=== PATIENT | female | born 1950 | race Caucasian/White ===

== ENCOUNTER 2021-03-07 18:48 | Emergency (ER) | payer MEDICARE, SELFPAY ==
[2021-03-07 18:48] VITALS: BP 131/56; PULSE 88; RESP 16; TEMP 36; O2SAT 96; BMI 26.6
--- NOTE | 2021-03-07 20:27 | EX.ED.DYSGE1 ---
HPI History of Present Illness Chief Complaint: Abscess Informant: patient and family Narrative Narrative: Patient here family infected bump on the back of the last 2 days. No fevers. History of diabetes. Reports there is a bump there in the past, she leans against a recliner. No drainage. Prior similar symptoms: Yes [facility] Medical History (Updated 03/07/21 @ 22:[address] Thang Benavides, DO) Arthritis Asthma Diabetes Hypertension Home Medications amoxicillin-pot clavulanate 1 tab PO Q12H #20 tab 03/07/21 [Rx Last Taken Unknown] Allergy/AdvReac Type Severity Reaction Status Date / Time No Known Allergies Allergy Verified 03/07/21 18:50 Social History Smoking Status: Former smoker ROS ROS ED Constitutional Constitutional ED: Denies chills, fever(s) or sweats Eyes Eyes: Denies change in vision ENT ENT ED: Denies dysphagia or sore throat Cardiovascular Cardiovascular: Denies chest pain, leg edema, palpitations or racing heartbeat Respiratory/Chest Respiratory/Chest: Denies cough, dyspnea or dyspnea on exertion Gastrointestinal Gastrointestinal: Denies abdominal pain, diarrhea, nausea or vomiting Genitourinary Genitourinary ED: Denies dysuria, hematuria or urinary frequency Musculoskeletal Musculoskeletal: Denies back pain, extremity pain or neck pain Integumentary Reports abscess; Denies rash or wounds Neurologic Neurologic: Denies headache(s), paresthesias or weakness EXAM Physical Exam Const Vital Signs: 03/07/21 18:48 03/07/21 22:46 Temperature 96.8 F L Temperature Source Temporal Pulse Rate 88 Respiratory Rate 16 16 Blood Pressure 131/56 H Blood Pressure Mean 81 Pulse Ox 96 Oxygen Delivery Method Room Air Positive well nourished and well developed General Appearance ED: well developed and NAD HEENT Reports moist mucous membranes normocephalic and atraumatic Eyes PERRL, EOMs intact bilaterally and conjunctivae normal General Eye ED: Yes normal appearance of both eyes Neck no lymphadenopathy and supple General: Negative for tenderness Chest Wall Chest: Negative for tenderness Resp normal respiratory effort and normal air movement Effort and Inspection: symmetric chest movement; Negative for respiratory distress Cardio regular rate, regular rhythm and no murmurs Peripheral Pulses: pulses 2+ throughout GI normal to inspection, nondistended, normoactive bowel sounds and non-tender Palpation: Negative for guarding or rebound tenderness present Back/Spine no CVA tenderness and no thoracic nor lumbar tenderness Extremity normal to inspection General Extremety ED: Negative for edema or tenderness General Extremity: Negative for edema Neuro oriented x3 and no sensory deficits noted Sensorium / Orientation: awake and alert Skin Skin Narrative: Flank region left side: 10 cm x 5 cm oval-shaped induration and erythema in the middle. Tender to palpation. No active drainage. MDM MDM MDM Narrative Medical decision making narrative: Patient history exam concerning for an infected sebaceous cyst. Blood glucose 156. Discussed incision and drainage discrete. Performed bedside copious sebaceous and mild exudative drainage. Patient started on Augmentin for 10 days. She is given follow-up with surgery as an outpatient for definitive management. To use Tylenol as needed. Wound care discussed. Discussed following up with her PCP in 2 to 3 days for wound check. Strict return precautions. Procedure note: Verbal consent. Normal sterile conditions. Patient laid lateral recumbent on the left side. Wound was prepped with alcohol pads, 10 cc of lidocaine with 1% epinephrine was used for local analgesia to the superior medial aspect of the cyst, cruciate incision was made extending approximately 3 cm. There was exudative drainage along with sebaceous material. Loculations were broken. 200 cc normal saline used for flushing. Dressing placed by myself. Patient tolerated procedure well. Lab Data Attestation: I reviewed the patient's lab results. Labs: Laboratory Results - last 24 hr 03/07/21 21:03 POC Glucose 156 H Discharge Plan Triage Chief Complaint: Abscess ED Provider: Thang Benavides Dx/Rx/DC Orders Clinical Impression: Sebaceous cyst, Infected sebaceous cyst of skin Instructions: ED Abscess Incision And Drainage, ED Cellulitis Prescriptions: New amoxicillin-pot clavulanate 875-125 mg tablet 1 tab PO Q12H Qty: 20 RF: 0 Primary Care Provider: Ana Barboza Referrals: Ana Barboza DO [Primary Care Provider] - 3-5 Days Ranjith Renner DO [STAFF PHYSICIAN] - 1 Week Activity Restrictions/Additional Instructions: Infected sebaceous cyst status post incision and drainage. Take antibiotic as prescribed. Follow-up with your doctor to recheck your wound. Follow-up with surgery for definitive treatment if desired. Disposition Disposition: Home, Self Care Discharge Date/Time: 03/07/21 22:47
[2021-03-07 21:06] LABS: Bedside Glucose 156 mg/dL (70-110)
[2021-03-07] MEDS: Lidocaine 1% /Epi 1:100 (20ml) 20 ML Vial INFILT (22:45)
[2021-03-07 22:46] VITALS: RESP 16
== END 2021-03-07 22:47 | disposition home or self-care (01) ==
PROVIDERS: Emergency Provider Emergency Medicine; PCP Family Medicine; Visit Provider Emergency Medicine
DX: L72.3 Sebaceous cyst (principal); E11.9 Type 2 diabetes mellitus without complications; Z87.891 Personal history of nicotine dependence
CPT/HCPCS: 10060; 82962; 99283